=== PATIENT | female | born 1975 ===

== ENCOUNTER 2023-11-15 07:12 | Day surgery (SDC) | payer OTHER, SELFPAY ==
[2023-11-11 10:34] VITALS: BMI 31.6
[2023-11-15 07:39] VITALS: BMI 31.3
[2023-11-15 07:56] LABS: UPreg QC Valid YES; Urine Pregnancy NEGATIVE (NEGATIVE)
--- NOTE | 2023-11-15 07:58 | P.CONAN_ITS ---
HPI - Anesthesia Eval Consult details Narrative: GERD + Screening Colonoscopy [facility] Past Medical History Medical History Asthma Hypothyroid Graves' disease GERD (gastroesophageal reflux disease) Family History Family history of problems with anesthesia: No Surgical History Surgical History Hx of section History of mandibular surgery History of Problems with Anesthesia: No Social History Social History Patient Tobacco Use Status: Never used Tobacco Use of substances other than those prescribed or required for medical reasons: No Are you DNR?: No Advance Directives: No Advance Directives Information Provided: Yes Meds Allergies Allergy/AdvReac Type Severity Reaction Status Date / Time propylthiouracil Allergy Unknown Unknown Verified 11/11/23 10:36 Active Medications: Current Medications Lactated Ringer's (Lr) 1,000 mls @ 100 mls/hr IVCONT .Q10H [facility] Home Medications Medication Instructions Recorded Confirmed Last Taken Type levothyroxine 125 mcg tablet 125 mcg PO DAILY 11/11/23 11/11/23 Unknown History omeprazole 20 mg capsule,delayed 20 mg PO DAILY 11/11/23 11/11/23 Unknown H istory release Exam Height,Weight and Vital Signs: Height 5 ft 4 in Weight 82.781 kg Pertinent Lab Results Pertinent Lab Results: Laboratory Tests 11/15/23 07:40 Urine Test NEGATIVE Airway Mallampati Class: II TM Dist: >3cm Neck ROM: Full Loose/Missing/Broken Teeth: No Heart: [id number] Lungs: cta b/l Assessment and Plan Assessment Anesthesia Assessment: Anesthesia Plan Discussed and Chart Reviewed Final Anesthetic Review Family History of Problems with Anesthesia: No History of Problems with Anesthesia: No NPO: Yes ASA Class: II Final Preanesthetic Review: No Changes in Pt Med Stat, Meds/Allgs Chart Reviewed, Consent Obtained/Reviewed and Anes Risks/Benef Reviewed Patient Risk: Intermediate Procedure Risk: Intermediate Assessment/Block/Sedation in SS: Assess/Block/Sedation- Anesthetic Plan Anesthetic Plan: MAC: Disposition: Standard PACU
[2023-11-15 08:03] VITALS: BP 123/85; PULSE 78; RESP 16; TEMP 36.4; O2SAT 100
[2023-11-15] MEDS: Lactated Ringers 1,000 ML 100 ML IVCONT (08:05)
--- NOTE | 2023-11-15 08:08 | MHC.SHP ---
Pre-Procedural Eval Section A - 24 Hr Update-Section A only Date of Service: 11/15/23 Section B - Complete if H&P > 30 days Chief Complaint: Encounter for screening for malignant neoplasm of Details of Present Illness: see H&P no changes Relevant Family History (Specify if Yes): No Relevant Social History: None Present Medications: see Short Stay Collaborative assessment Medical History: No relevant PMH Allergies: Allergies Allergy/AdvReac Type Severity Reaction Status Date / Time propylthiouracil Allergy Unknown Unknown Verified 11/15/23 08:03 Review of Systems Sugical H&P ROS: Negative: Constitution, Cardiovascular, Respiratory, Neurological, Psychiatric, Hem-Onc, Allergic/Immunologic, Gastrointestinal, Genitourinary, Musculoskeletal, Integumentary, Endocrine and Eyes/Ears/Nose/Throat Exam Surgical H&P Exam: Normal: HEENT, Normal: Heart, Normal: Lungs, Normal: Extremities, Normal: Abdomen, Normal: Skin and Normal: Neurological Plan Diagnosis/Plan: Unchanged I have reviewed the history and physical and performed a pertinent physical examination on my patient. No changes have occurred unless specified. Time Spent With Patient Time: Total time managing care of this patient today ____ minutes.
[2023-11-15 08:46] VITALS: BP 103/57; PULSE 80; RESP 16; TEMP 36.8; O2SAT 99
[2023-11-15 09:01] VITALS: BP 107/68; PULSE 80; RESP 18; TEMP 36.7; O2SAT 99
--- NOTE | 2023-11-15 09:03 | OP_ITS ---
DATE OF SERVICE: 11/15/2023 SURGEON: Eric Miramontes MD INDICATIONS: 1. Gastroesophageal reflux disease. 2. Colon cancer screening. PREOPERATIVE DIAGNOSIS: POSTOPERATIVE DIAGNOSIS: PROCEDURE PERFORMED: Upper endoscopy with biopsy, colonoscopy to the terminal ileum with snare polypectomy. ESTIMATED BLOOD LOSS: COMPLICATIONS: ANESTHESIA: Monitored anesthesia care. ASSISTANTS: SPECIMENS: DESCRIPTION OF PROCEDURE: A history and physical performed. The risks and benefits of the procedure were explained to the patient. Informed consent was obtained. The patient was placed in the left lateral decubitus position. The Olympus video gastroscope was introduced and into the esophagus, stomach, and duodenum. Examination was performed. The scope was removed. She was repositioned for colonoscopy. A digital rectal exam was performed and was found to be normal. The Olympus pediatric video colonoscope was introduced into the rectum and advanced to the cecum. The cecum was identified by transillumination, palpation, and identification of ileocecal valve. Examination was performed. The scope was removed. She tolerated the procedure well and was taken to recovery room in stable condition. FINDINGS: Upper endoscopy: 1. Esophagus: The esophagus showed an irregular EG junction. This was biopsied. There was no esophagitis. 2. Stomach: The stomach showed multiple benign-appearing gastric polyps in the fundus and body consistent with fundic gland polyps. Two of these were biopsied. Antral biopsies were also obtained to rule out H pylori. 3. Duodenum: The bulb and 2nd portion were normal. Colonoscopy: The terminal ileum was examined and appeared normal. The visualized colonic mucosa was within normal limits without evidence of masses or ulcers. A single polyp was identified and removed using a cold snare. This was located in the rectum measuring less than 5 mm. No other polyps were identified. There was a single diverticulum identified in the right colon. Retroflexed examination showed small internal hemorrhoids. The quality of prep was good. IMPRESSION: 1. Gastric polyps. 2. Gastroesophageal reflux disease. 3. Colon polyp. RECOMMENDATION: Follow up the biopsy results. MD MARLENI Cooper/BRIDGETT / [id number]
== END 2023-11-15 09:25 | disposition home or self-care (01) ==
PROVIDERS: Anesthesiology; PCP Internal Medicine Endocrinology, Diabetes & Metabolism; Visit Provider Internal Medicine Gastroenterology
PROC: (CPT 45385; principal; 2023-11-15 08:20)
DX: Z12.11 Encounter for screening for malignant neoplasm of colon (principal); D12.8 Benign neoplasm of rectum; K57.30 Diverticulosis of large intestine without perforation or abscess without bleeding; K21.9 Gastro-esophageal reflux disease without esophagitis; K29.50 Unspecified chronic gastritis without bleeding; K31.7 Polyp of stomach and duodenum; E05.00 Thyrotoxicosis with diffuse goiter without thyrotoxic crisis or storm; E03.9 Hypothyroidism, unspecified; J45.909 Unspecified asthma, uncomplicated; Z79.899 Other long term (current) drug therapy
CPT/HCPCS: 45385; 43239; 81025; 88305; 88313; 88342; J1596; J2704